=== PATIENT | male | born 1985 | race African-American/Black ===

== ENCOUNTER 2025-05-04 13:02 | Emergency (ER) | payer OTHER, SELFPAY ==
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
[2025-05-04 13:09] VITALS: BP 114/73; PULSE 91; RESP 16; TEMP 36.8; O2SAT 98; BMI 21.5
--- NOTE | 2025-05-04 13:31 | CRLHL7_ITS ---
For Patients: As a result of the Century Cures Act, medical imaging exams and procedure reports are released immediately into your electronic medical record. You may view this report before your referring provider. If you have questions, please contact your health care provider. Indication: Fall, right hip pain. Technique: Single AP view of the pelvis. Comparison: None. Findings/Impression: Bones: Normal alignment. 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 Joint spaces: Otherwise, unremarkable. Soft tissues: Unremarkable. Dictated by Rustam Liang MD @ 05/04/2025 2:15:11 PM (Electronically Signed)
--- NOTE | 2025-05-04 13:31 | CRLHL7_ITS ---
For Patients: As a result of the Century Cures Act, medical imaging exams and procedure reports are released immediately into your electronic medical record. You may view this report before your referring provider. If you have questions, please contact your health care provider. Indication: Right knee pain. Technique: Right knee 3 views. Comparison: None. Findings: Bones: Alignment is normal. No acute fracture or suspicious bone lesion. Joint spaces: Unremarkable. No knee joint effusion. Soft tissues: Unremarkable. Impression: No evidence of an acute bony abnormality. Dictated by Rustam Liang MD @ 05/04/2025 2:11:06 PM (Electronically Signed)
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
--- NOTE | 2025-05-04 14:17 | CRLHL7_ITS ---
For Patients: As a result of the Century Cures Act, medical imaging exams and procedure reports are released immediately into your electronic medical record. You may view this report before your referring provider. If you have questions, please contact your health care provider. Indication: Fall, right hip pain, possible acetabular fracture Technique: Noncontrast CT of the pelvis. Comparison: Pelvic radiograph from the same day. Findings: No acute fracture identified. Normal alignment. The queried bone fragment corresponds to a prominent os acetabula on the right. There is a chronic-appearing incomplete cleft within the lateral aspect of the right posterior acetabulum (3/228). A punctate calcification within the labrum is noted on the left. Atherosclerotic calcification of the iliac arteries, greater than expected for age. No free fluid in the pelvis. The intrapelvic organs are otherwise unremarkable. Impression: No acute fracture identified. The queried bone fragment corresponds to a prominent right-sided os acetabuli. Please note that all CT scans at this facility use dose modulation, iterative reconstruction, and/or weight-based dosing when appropriate to reduce radiation dose to as low as reasonably achievable. Dictated by Rustam Liang MD @ 05/04/2025 2:50:00 PM (Electronically Signed)
== END 2025-05-04 15:15 | disposition home or self-care (01) ==
PROVIDERS: Emergency Provider Emergency Medicine
DX: S80.11XA Contusion of right lower leg, initial encounter (principal); S80.811A Abrasion, right lower leg, initial encounter; S80.01XA Contusion of right knee, initial encounter; W01.10XA Fall on same level from slipping, tripping and stumbling with subsequent striking against unspecified object, initial encounter; Y93.02 Activity, running; Y92.9 Unspecified place or not applicable; Y99.0 Civilian activity done for income or pay
CPT/HCPCS: 72170; 72192; 73562; 99284; 99285